=== PATIENT | male | born 1985 | race African-American/Black ===

== ENCOUNTER 2022-05-11 12:18 | Emergency (ER) | payer MEDICAID ==
[~2022-05-11] VITALS: Ht 182.9 cm; Wt 95.3 kg
--- NOTE | 2022-05-11 12:20 | NUR ---
pt assisted into bed 10 by amr
[2022-05-11 12:25] VITALS: BP 148/78
--- NOTE | 2022-05-11 12:25 | NUR ---
md joshua at bedside for pt evaluation
[2022-05-11 12:30] VITALS: BP 113/73
--- NOTE | 2022-05-11 12:31 | NUR ---
36 y/o male biba from [employer], c/o aloc and unwitnessed seizure today. pt states he has no history of seizure, per amr, they contacted family/friend and states pt has had seizures in the past. pt has fall, pt has bruising on right side, states he fell few days ago. accucheck en route 144, iv placed by ems 20g left forearm. skin is pink/warm/dry. a&o x3 to name, and year, ambulates with even and steady gait. lungs clear bl, heart rate even and tachy at 111. pt denies any fever, cp, sob, or cough at this time. pt states pain is 0/10 at this time. patient positioned for comfort. hob elevated. bed down. ermd made aware of pt. pmh: crohn's disease, colitis, asthma nka med: denies
--- NOTE | 2022-05-11 12:36 | NUR ---
pt left facility, eloped at this time Addendum: 05/11/22 at 1241 by MEDCOLER per tres, pt changed to lwbs at this time
== END 2022-05-11 12:41 | disposition left against medical advice (07) ==
LOC: MED 12:18
DX: R56.9 Unspecified convulsions (principal); R41.82 Altered mental status, unspecified; Z53.21 Procedure and treatment not carried out due to patient leaving prior to being seen by health care provider
CPT/HCPCS: 93005; 99281